=== PATIENT | female | born 1995 | race Caucasian/White ===

== ENCOUNTER 2018-03-27 11:44 | Inpatient (IN) | payer MEDICAID ==
[2018-03-27] MEDS ORDERED: METHYLERGONOVINE 0.2 MG INJ IM (13:00)
[2018-03-27] MEDS ORDERED: BUTORPHANOL 2 MG INJ IV (13:00)
[2018-03-27] MEDS ORDERED: OXYTOCIN 30 UNITS/LR 500 ML IV ×2 (13:00)
[2018-03-27] MEDS ORDERED: MISOPROSTOL 200 MCG TAB PR (13:00)
[2018-03-27] MEDS ORDERED: CARBOPROST 250 MCG INJ IM (13:00)
[2018-03-27 14:04] LABS: RUPTURE FETAL MEMBRANES POSITIVE (NEGATIVE)
[2018-03-27] MEDS: LACTATED RINGER'S 1,000 ML IV ×3 (15:30→20:20)
[2018-03-27] MEDS: PIPER-TAZO 3.375 GM IV (PMX) 100 ML IVPB ×2 (15:30→21:30)
[2018-03-27 15:47] LABS: ADD MAN DIFF? NO
[2018-03-27 15:50] LABS: BASOPHILS % 0.2 % (0.0-2.0); EOSINOPHILS # 0.1 10^3/ul (0.0-0.5); EOSINOPHILS % 1.3 % (0.0-7.0); HEMATOCRIT 39.5 % (37.0-47.0); LYMPHOCYTES # 1.2 10^3/ul (0.8-2.9); MEAN CORPUSCULAR HEMOGLOBIN 28.3 pg (29.0-33.0); MEAN CORPUSCULAR HGB CONC 32.9 g/dl (32.0-37.0); MEAN CORPUSCULAR VOLUME 86.1 fl (82.0-101.0); MONOCYTE # 0.5 10^3/ul (0.3-0.9); MONOCYTES % 5.3 % (0.0-11.0); NEUTROPHIL # 7.5 10^3/ul (1.6-7.5); NEUTROPHILS % 79.5 % (39.0-77.0); PLATELET COUNT 208 10^3/UL (140-415); RED BLOOD COUNT 4.59 10^6/ul (4.20-5.40); RED CELL DISTRIBUTION WIDTH 13.7 % (11.5-14.5)
[2018-03-27 15:50] LABS: WHITE BLOOD COUNT 9.4 10^3/ul (4.8-10.8)
[2018-03-27] MEDS: OXYTOCIN 30 UNITS/LR 500 ML IV (15:50)
[2018-03-27 16:10] LABS: INR 0.82; PARTIAL THROMBOPLASTIN TIME 25.8 Sec (23.0-35.0); PROTIME 11.4 Sec (11.9-14.9); PT RATIO 0.9
[2018-03-27] MEDS ORDERED: FENTAnyl 2MCG/ML-ROPIV 0.2% 100 ML (20:04)
[2018-03-27] MEDS ORDERED: FENTAnyl 2MCG/ML-ROPIV 0.2% 100 ML BAG EPI (20:30)
[2018-03-27] MEDS ORDERED: NALOXONE (0.4 MG/ML) INJ IV (20:30)
[2018-03-27] MEDS ORDERED: MINERAL OIL LIGHT 10 ML VIAL (23:49)
[2018-03-28] MEDS: OXYTOCIN 30 UNITS/LR 500 ML IV ×2 (01:43→02:25)
[2018-03-28] MEDS: LIDOCAINE 1% (MPF) 30 ML INJ INJ (01:44)
[2018-03-28] MEDS ORDERED: ACETAMINOPHEN 325 MG TAB PO (02:30)
[2018-03-28] MEDS ORDERED: IBUPROFEN 600 MG TAB PO (02:30)
[2018-03-28] MEDS ORDERED: METHYLERGONOVINE 0.2 MG INJ IM (02:30)
[2018-03-28] MEDS ORDERED: OXYTOCIN 30 UNITS/LR 500 ML IV (02:30)
[2018-03-28] MEDS ORDERED: DIBUCAINE 1% 30 GM OINT TOP (02:30)
[2018-03-28] MEDS ORDERED: MAGNESIUM HYDROXIDE 30ML CUP PO (02:30)
[2018-03-28] MEDS ORDERED: SENNA/DOCUSATE NA (8.6MG/50MG) TAB PO (02:30)
[2018-03-28] MEDS ORDERED: CARBOPROST 250 MCG INJ IM (02:30)
[2018-03-28] MEDS ORDERED: MISOPROSTOL 200 MCG TAB PR (02:30)
[2018-03-28] MEDS ORDERED: ONDANSETRON 4 MG INJ IV (02:30)
[2018-03-28] MEDS: PIPER-TAZO 3.375 GM IV (PMX) 100 ML IVPB ×3 (05:48→17:34)
[2018-03-28] MEDS: BENZOCAINE 20% 56 ML SPRAY TOP (07:23)
[2018-03-28] MEDS: LACTATED RINGER'S 1,000 ML IV* ×3 (07:23→18:25)
[2018-03-28] MEDS: LANOLIN HPA 1 PKT TOP (07:23)
[2018-03-28] MEDS: WITCH HAZEL/GLYCERIN PAD PR (07:23)
[2018-03-28] MEDS: ACETAMINOPHEN 325 MG TAB PO (12:12)
[2018-03-28] MEDS: LACTATED RINGER'S 1,000 ML IV ×2 (12:55→20:55)
[2018-03-28 17:13] LABS: RAPID PLASMA REAGIN NONREACTIVE (NR)
[2018-03-29 09:52] LABS: ADD MAN DIFF? NO
[2018-03-29 09:55] LABS: BASOPHILS % 0.4 % (0.0-2.0); EOSINOPHILS # 0.2 10^3/ul (0.0-0.5); EOSINOPHILS % 1.6 % (0.0-7.0); HEMATOCRIT 33.9 % (37.0-47.0); LYMPHOCYTES # 1.6 10^3/ul (0.8-2.9); LYMPHOCYTES % 15.8 % (15.0-51.0); MEAN CORPUSCULAR HEMOGLOBIN 28.6 pg (29.0-33.0); MEAN CORPUSCULAR HGB CONC 32.4 g/dl (32.0-37.0); MEAN CORPUSCULAR VOLUME 88.3 fl (82.0-101.0); MEAN PLATELET VOLUME 10.9 fl (7.4-10.4); MONOCYTE # 0.6 10^3/ul (0.3-0.9); MONOCYTES % 6.1 % (0.0-11.0); NEUTROPHIL # 7.6 10^3/ul (1.6-7.5); NEUTROPHILS % 75.2 % (39.0-77.0); PLATELET COUNT 185 10^3/UL (140-415); RED BLOOD COUNT 3.84 10^6/ul (4.20-5.40); RED CELL DISTRIBUTION WIDTH 14.2 % (11.5-14.5)
[2018-03-29 09:55] LABS: WHITE BLOOD COUNT 10.1 10^3/ul (4.8-10.8)
== END 2018-03-29 17:05 | disposition home or self-care (01) | DRG 807 ==
LOC: OBT 11:44 → PP1 03-28 04:01 → L-D 11:45 → OBT 12:50 → L-D 12:50
PROVIDERS: Specialist
PROC: 10E0XZZ Delivery of Products of Conception, External Approach (ICD-10-PCS; principal; 2018-03-28)
PROC: 0W8NXZZ Division of Female Perineum, External Approach (ICD-10-PCS; 2018-03-28)
DX: O48.0 Post-term pregnancy (principal); Z37.0 Single live birth; Z3A.40 40 weeks gestation of pregnancy; O77.0 Labor and delivery complicated by meconium in amniotic fluid; O76 Abnormality in fetal heart rate and rhythm complicating labor and delivery
CPT/HCPCS: 62319; 76815; 84112; 85025; 85610; 85730; 86592; 86850; 86900; 86901; 88307; 99464